=== PATIENT | female | born 1950 | race Caucasian/White ===

== ENCOUNTER 2016-10-02 16:08 | Inpatient (IN) | payer MEDICARE, OTHER ==
[2016-10-02] MEDS ORDERED: HEPARIN SODIUM,PORCINE 5,000 UNIT/ML 1 ML VIAL IV ONE (16:36)
[2016-10-02] MEDS ORDERED: HEPARIN SODIUM,PORCINE 5,000 UNIT/ML 1 ML VIAL IV PRN (16:36)
[2016-10-02] MEDS ORDERED: ASPIRIN 81 MG CHEW PO STA (16:36)
[2016-10-02] MEDS ORDERED: NITROGLYCERIN SL TABS 0.4 MG TAB SUBLINGUAL PRN (16:36)
--- NOTE | 2016-10-02 16:39 | ED ---
General Adult HPI - General Chief complaint: Chest Pain Stated complaint: Chest Pain Time Seen by Provider: 10/02/16 16:12 Source: patient, family, RN notes reviewed, old records reviewed Mode of arrival: wheelchair Limitations: no limitations - History of Present Illness Initial comments: This is a 66-year-old female here for reevaluation of chest pain. Patient's chest pain feels as a prior heart attack, relieved with nitro. Patient's significant history of anterior chest pain and significant history of coronary artery disease with CABG and stenting. Patient been having issues for quite some time. Nausea vomiting no fevers, positive for diaphoresis and shortness of breath. - Related Data Allergies Allergy/AdvReac Type Severity Reaction Status Date / Time No Known Allergies Allergy Verified 10/02/16 16:15 Review of Systems ROS Statement: Those systems with pertinent positive or pertinent negative responses have been documented in the HPI. ROS Other: All systems not noted in ROS Statement are negative. Past Medical History Past Medical History: Coronary Artery Disease (CAD), Fibromyalgia, Hypertension , Osteoarthritis (OA) Additional Past Medical History / Comment(s): chronic back pain History of Any Multi-Drug Resistant Organisms: None Reported Past Surgical History: Coronary Bypass/CABG, Heart Catheterization With Stent Past Psychological History: Anxiety, Bipolar, Depression Smoking Status: Never smoker Past Alcohol Use History: None Reported Past Drug Use History: None Reported General Exam Limitations: no limitations General appearance: alert, in no apparent distress Head exam: Present: atraumatic, normocephalic, normal inspection Eye exam: Present: normal appearance, PERRL, EOMI. Absent: scleral icterus, conjunctival injection, periorbital swelling ENT exam: Present: normal exam, mucous membranes moist Neck exam: Present: normal inspection. Absent: tenderness, meningismus, lymphadenopathy Respiratory exam: Present: normal lung sounds bilaterally. Absent: respiratory distress, wheezes, rales, rhonchi, stridor Cardiovascular Exam: Present: regular rate, normal rhythm, normal heart sounds. Absent: systolic murmur, diastolic murmur, rubs, gallop, clicks GI/Abdominal exam: Present: soft, normal bowel sounds. Absent: distended, tenderness, guarding, rebound, rigid Extremities exam: Present: normal inspection, full ROM, normal capillary refill. Absent: tenderness, pedal edema, joint swelling, calf tenderness Back exam: Present: normal inspection Neurological exam: Present: alert, oriented X3, CN II-XII intact Psychiatric exam: Present: normal affect, normal mood Skin exam: Present: warm, dry, intact, normal color. Absent: rash Course Vital Signs 10/02/16 16:12 Temperature 97.9 F Pulse Rate 69 Respiratory 18 Rate Blood Pressure 101/67 O2 Sat by Pulse 99 Oximetry EKG Findings - EKG Comments: EKG Findings:: EKG shows normal sinus rhythm at 65, FL 174, QRS 84, QTC 426 Medical Decision Making - Medical Decision Making 66 female ER for evaluation of chest pain. Chest pain relieved with nitro, patient has history of CAD, cardiac catheterizations multiple, CABG, patient scheduled for outpatient catheterization on but severe increase in chest pain and shortness of breath because her come the emergency room for further evaluation. Patient be made for anticoagulation cardiology evaluation, observation and treatment - Radiology Data Radiology results: report reviewed (Chest x-ray is negative for acute disease), image reviewed Critical Care Time Critical Care Time: Yes Total Critical Care Time: 31 Disposition Clinical Impression: Chest pain, Unstable angina pectoris Disposition: ADMITTED IP TO THIS HOSP Condition: Undetermined Referrals: Rashaad Mueller DO [Primary Care Provider] - 1-2 days
[2016-10-02] MEDS: SODIUM CHLORIDE 0.9% 1,000 ML IV SCH (16:45)
[2016-10-02 16:49] LABS: Basophils # (A) 0.1 k/uL (0-0.2); Basophils % (A) 1 %; CH 33.1; CHCM 33.8; Eosinophils # (A) 0.2 k/uL (0-0.7); Eosinophils % (A) 2 %; HCT 44.3 % (34.0-46.0); HGB 14.8 gm/dL (11.4-16.0); Luc # (Auto) 0.13; Luc % (Auto) 1; Lymphocytes # (A) 2.5 k/uL (1.0-4.8); Lymphocytes % (A) 27 %; MCH 32.8 pg (25.0-35.0); MCHC 33.4 g/dL (31.0-37.0); MCV 98.2 fL (80.0-100.0); Monocytes # (A) 0.5 k/uL (0-1.0); Monocytes % (A) 5 %; Neutrophils # (A) 5.9 k/uL (1.3-7.7); Neutrophils % (A) 64 %; RBC 4.51 m/uL (3.80-5.40); RDW 13.4 % (11.5-15.5); WBC 9.2 k/uL (3.8-10.6); WBC (Perox) 9.18
[2016-10-02] MEDS: HEPARIN SODIUM,PORCINE/D5W PMX 25,000 UNIT in DEXTROSE/WATER 1 500ML.BAG IV SCH (16:52)
[2016-10-02 16:57] LABS: Prothrombin Time 9.9 sec (9.0-12.0)
[2016-10-02 16:58] LABS: ALT 27 U/L (9-52); AST 33 U/L (14-36); Alkaline Phosphatase 141 U/L (38-126); Anion Gap 13 mmol/L; Blood Urea Nitrogen 39 mg/dL (7-17); Calcium 9.6 mg/dL (8.4-10.2); Carbon Dioxide 22 mmol/L (22-30); Chloride 104 mmol/L (98-107); Glucose 179 mg/dL (74-99); Non-African American GFR(MDRD) >60 (>60 ml/min/1.73 sqM); Phosphorous 5.5 mg/dL (2.5-4.5); Sodium 139 mmol/L (137-145); Total Bilirubin 1.1 mg/dL (0.2-1.3); Total Protein 7.8 g/dL (6.3-8.2)
[2016-10-02 16:59] LABS: Potassium 5.6 mmol/L (3.5-5.1)
--- NOTE | 2016-10-02 17:04 | XR ---
EXAMINATION TYPE: XR chest 2V DATE OF EXAM: 10/02/2016 5:00 PM COMPARISON: 04/17/2010 HISTORY: Chest pain TECHNIQUE: Frontal and lateral views of the chest are obtained. FINDINGS: Heart and mediastinum are within normal limits. Lungs are clear. There are sternal wires. Costophrenic angles are clear there are no hilar masses. There is no evidence of pleural effusion. Samir ny thorax is intact. IMPRESSION: No active cardiopulmonary disease. No change.
[2016-10-02 17:06] LABS: Partial Thromboplastin Time 20.2 sec (22.0-30.0)
[2016-10-02] MEDS ORDERED: MORPHINE SULFATE 4 MG/ML SYRINGE IVP STA (17:07)
[2016-10-02 17:08] LABS: Creatine Kinase <20 U/L (30-135)
[2016-10-02] MEDS ORDERED: ONDANSETRON 4 MG/2 ML VIAL IVP STA (17:08)
[2016-10-02 17:21] LABS: Creatine Kinase MB <0.2 ng/mL (0.0-2.4); Troponin I <0.012 ng/mL (0.000-0.034)
[2016-10-02] MEDS ORDERED: SODIUM POLYSTYRENE SULFONATE 15 GM/60 ML BOTTLE PO ONE (18:54)
[2016-10-02] MEDS ORDERED: HYDROcodone/APAP 7.5-325MG 1 EACH TAB PO PRN (18:55)
[2016-10-02] MEDS ORDERED: SENNOSIDES-DOCUSATE SODIUM 1 EACH TAB PO PRN (18:55)
[2016-10-02] MEDS ORDERED: LORATADINE 10 MG TAB PO PRN (18:55)
[2016-10-02 19:41] LABS: Appearance,Urine Clear (Clear); Bilirubin,Urine Negative (Negative); Glucose,Urine (UA) 2+ (Negative); Ketones,Urine Negative (Negative); Leukocyte Esterase,Urine Small (Negative); Mucus,Urine Occasional /hpf; Nitrite,Urine Negative (Negative); PH, Urine 5.5 (5.0-8.0); Particle Count 3108; Protein,Urine Negative (Negative); RBC,Urine 1 /hpf (0-5); Specific Gravity,Urine 1.027 (1.001-1.035); Squamous Epithelial Cell,Urine 1 /hpf (0-4); UA Billing (MACRO vs. MICRO) MICRO; Urobilinogen,Urine <2.0 mg/dL (<2.0); WBC,Urine 5 /hpf (0-5)
[2016-10-02] MEDS: lamoTRIgine 25 MG TAB PO SCH (20:17)
[2016-10-02] MEDS: METOPROLOL TARTRATE 25 MG TAB PO SCH (20:18)
[2016-10-02] MEDS ORDERED: LIDOCAINE 2% GEL 30 ML TUBE TOPICAL PRN (23:16)
[2016-10-02] MEDS: HYDROcodone/APAP 7.5-325MG 1 EACH TAB PO PRN (23:31)
[2016-10-03 00:35] LABS: Creatine Kinase <20 U/L (30-135)
[2016-10-03 00:47] LABS: Creatine Kinase MB <0.2 ng/mL (0.0-2.4); Troponin I <0.012 ng/mL (0.000-0.034)
[2016-10-03 06:08] LABS: Mean Platelet Volume 7.2
[2016-10-03 06:35] LABS: Creatine Kinase <20 U/L (30-135)
[2016-10-03] MEDS: PANTOPRAZOLE 40 MG TABLET PO SCH (06:37)
[2016-10-03 06:47] LABS: Creatine Kinase MB <0.2 ng/mL (0.0-2.4); Troponin I <0.012 ng/mL (0.000-0.034)
[2016-10-03 07:31] LABS: Anion Gap 12 mmol/L; Blood Urea Nitrogen 24 mg/dL (7-17); Calcium 8.8 mg/dL (8.4-10.2); Carbon Dioxide 23 mmol/L (22-30); Chloride 105 mmol/L (98-107); Glucose 196 mg/dL (74-99); Non-African American GFR(MDRD) >60 (>60 ml/min/1.73 sqM); Potassium 4.5 mmol/L (3.5-5.1); Sodium 140 mmol/L (137-145)
[2016-10-03 07:32] LABS: Cholesterol 220 mg/dL (<200); HDL Cholesterol 67 mg/dL (40-60); Triglycerides 138 mg/dL (<150)
[2016-10-03] MEDS: HYDROcodone/APAP 7.5-325MG 1 EACH TAB PO PRN ×3 (07:32→20:48)
[2016-10-03] MEDS: ETODOLAC 200 MG CAPSULE PO SCH (07:32)
[2016-10-03] MEDS: METOPROLOL TARTRATE 25 MG TAB PO SCH ×2 (07:32→20:48)
[2016-10-03] MEDS: DULoxetine HCL 60 MG CAPSULE.DR PO SCH (07:33)
[2016-10-03] MEDS: ASPIRIN 325 MG TAB PO SCH (07:33)
[2016-10-03] MEDS: lamoTRIgine 25 MG TAB PO SCH ×2 (07:33→20:48)
[2016-10-03] MEDS ORDERED: NON-FORMULARY DRUG (Ubidecarenone [Co Q-10] 100 MG) PO SCH (09:00)
[2016-10-03] MEDS ORDERED: ATORVASTATIN 20 MG TAB PO SCH (09:00)
[2016-10-03] MEDS ORDERED: ISOSORBIDE MONONITRATE ER 30 MG TAB.ER.24H PO SCH (09:00)
--- NOTE | 2016-10-03 09:28 | P.CRDCN ---
History of Present Illness Consult date: 10/03/16 Reason for Consult (text): Chest Pain Chief complaint: Chest heaviness History of present illness: This is a pleasant 66-year-old female patient who follows with Dr. Hilario in the office. She has a known history of hypertension, dyslipidemia, coronary artery disease, status post coronary artery bypass grafting in 2008, negative stress test in April 2016. She has been having complaints of chest heaviness going on for about 6 weeks and recently saw Dr. Hilario in the office and has been scheduled for cardiac catheterization on the of this month. Senna to the emergency room with increasing chest heaviness that radiated to her back, bilateral shoulders and to her jaw. Associated symptoms included diaphoresis, shortness of breath and nausea. She also complains of occasional palpitations. EKG on admission shows sinus rhythm with T-wave inversion in the precordial leads, possible old anterior [place], no changes of acute ischemia. Laboratory values showed troponins less than 0.0123, BUN 24 and creatinine 0.6. Chest x- ray showed no acute cardiopulmonary process. Upon examination patient is resting comfortably in bed. Complains of chest heaviness that is constant, rated about 2 out of 10 at rest. Increases significantly with exertion. Currently denies any complaints of shortness of breath, nausea, diaphoresis, syncope, near syncope or edema. Past Medical History Past Medical History: Coronary Artery Disease (CAD), Fibromyalgia, Hypertension , Myocardial Infarction (ME), Osteoarthritis (OA) Additional Past Medical History / Comment(s): chronic back pain Last Myocardial Infarction Date:: 2008 History of Any Multi-Drug Resistant Organisms: None Reported Past Surgical History: Coronary Bypass/CABG, Heart Catheterization With Stent Additional Past Surgical History / Comment(s): CABG 2009 [facility] STENT AT [facility] BEFORE CABG SURGERY- DR CUTLER Past Anesthesia/Blood Transfusion Reactions: No Reported Reaction Date of Last Stent Placement:: 2003 Past Psychological History: Anxiety, Bipolar, Depression Smoking Status: Never smoker Past Alcohol Use History: None Reported Past Drug Use History: None Reported - Past Family History Mother Family Medical History: Diabetes Mellitus Father Family Medical History: Myocardial Infarction (ME) Medications and Allergies Home Medications Medication Instructions Recorded Confirmed Type Aspirin EC [Ecotrin Low Dose] 81 mg PO DAILY 10/02/16 10/02/16 History Cetirizine HCl [Zyrtec] 10 mg PO DAILY PRN 10/02/16 10/02/16 History DULoxetine HCL [Cymbalta] 60 mg PO DAILY 10/02/16 10/02/16 History Diclofenac Sodium [Voltaren] 50 mg PO DAILY 10/02/16 10/02/16 History HYDROcodone/APAP 7.5-325MG [[place] 1 tab PO Q8H PRN 10/02/16 10/02/16 History 7.5-325] Isosorbide Mononitrate ER [Imdur] 30 mg PO DAILY 10/02/16 10/02/16 History L.acidoph,Paracasei, B.lactis 1 cap PO DAILY 10/02/16 10/02/16 History [Probiotic] Metoprolol Tartrate [Lopressor] 25 mg PO BID 10/02/16 10/02/16 History Omeprazole [PriLOSEC] 20 mg PO DAILY 10/02/16 10/02/16 History Rosuvastatin Calcium [Crestor] 10 mg PO DAILY 10/02/16 10/02/16 History Sennosides-Docusate Sodium 1 - 2 tab PO TID PRN 10/02/16 10/02/16 History [Senokot-S] Ubidecarenone [Co Q-10] 100 mg PO DAILY 10/02/16 10/02/16 History lamoTRIgine [LaMICtal] 50 mg PO BID 10/02/16 10/02/16 History predniSONE 20 mg PO DAILY PRN 10/02/16 10/02/16 History Allergies Allergy/AdvReac Type Severity Reaction Status Date / Time No Known Allergies Allergy Verified 10/02/16 17:17 Physical Exam Vitals: Vital Signs Temp Pulse Pulse Pulse Resp BP BP 10/03/16 08:00 60 60 16 10/03/16 07:49 98.5 F 60 16 136/70 10/03/16 04:00 97.1 F L 61 17 122/72 10/03/16 00:00 97.5 F L 63 18 129/73 10/02/16 19:45 97.1 F L 68 68 18 117/66 10/02/16 18:08 97.9 F 63 20 113/63 10/02/16 17:43 61 10/02/16 17:18 65 18 117/73 Pulse Ox 10/03/16 08:00 10/03/16 07:49 96 10/03/16 04:00 97 10/03/16 00:00 94 L 10/02/16 19:45 95 10/02/16 18:08 96 10/02/16 17:43 10/02/16 17:18 96 Intake and Output 10/02/16 10/03/16 10/03/16 22:59 06:59 14:59 Intake Total 640 218.429 Output Total 100 100 Balance 540 218.429 -100 Intake: Intake, IV Titration 160 218.429 Amount Heparin Sodium,Porcine/ 218.429 D5w Pmx 25,000 unit In Dextrose/Water 1 500ml. bag @ 12 UNITS/KG/HR 16. 22 mls/hr IV .Q24H JU Rx #:[id number] Sodium Chloride 0.9% 1, 160 000 ml @ 20 mls/hr IV . Q24H JU Rx#:[id number] Oral 480 Output: Urine 100 100 Other: Voiding Method Toilet Toilet # Voids 1 1 1 Weight 66.4 kg 66.4 kg Patient Weight 10/04/16 06:59 Weight 66.4 kg PHYSICAL EXAMINATION: HEENT: Head is atraumatic, normocephalic. Pupils equal, round. Neck is supple. There is no elevated jugular venous pressure. HEART EXAMINATION: Heart sounds regular, S1 and S2 normal. No murmur or gallop heard. CHEST EXAMINATION: Lungs are clear to auscultation and precussion. No chest wall tenderness is noted on palpation or with deep breathing. ABDOMEN: Soft, nontender. Bowel sounds are heard. No organomegaly noted. EXTREMITIES: 2+ peripheral pulses with no evidence of peripheral edema and no calf tenderness noted. NEUROLOGIC patient is awake, alert and oriented x3. . Results 10/03/16 05:49 10/03/16 05:49 Cardiac Enzymes 10/02/16 10/03/16 Range/Units 23:53 05:49 CK-MB (CK-2) <0.2 <0.2 (0.0-2.4) ng/mL Troponin I <0.012 <0.012 (0.000-0.034) ng/mL Coagulation 10/02/16 10/03/16 Range/Units 23:53 05:49 APTT 47.2 H 49.5 H (22.0-30.0) sec Lipids 10/03/16 Range/Units 05:49 Triglycerides 138 (<150) mg/dL Cholesterol 220 H (<200) mg/dL HDL Cholesterol 67 H (40-60) mg/dL CBC 10/03/16 Range/Units 05:49 Plt Count 213 (150-450) k/uL Comprehensive Metabolic Panel 10/03/16 Range/Units 05:49 Sodium 140 (137-145) mmol/L Potassium 4.5 (3.5-5.1) mmol/L Chloride 105 (98-107) mmol/L Carbon Dioxide 23 (22-30) mmol/L BUN 24 H (7-17) mg/dL Creatinine 0.60 (0.52-1.04) mg/dL Glucose 196 H (74-99) mg/dL Calcium 8.8 (8.4-10.2) mg/dL Current Medications Generic Name Dose Route Start Last Admin Trade Name Freq PRN Reason Stop Dose Admin Hydrocodone Bitart/Acetaminophen 1 each 10/02/16 23:17 10/03/16 07:32 [place] 7.5-325 PO 1 each Q4H PRN Administration Moderate Pain Aspirin 325 mg 10/03/16 09:00 10/03/16 07:33 Aspirin PO 325 mg DAILY JU Administration Atorvastatin Calcium 20 mg 10/03/16 09:00 10/03/16 07:32 Lipitor PO 20 mg DAILY JU Administration Duloxetine HCl 60 mg 10/03/16 09:00 10/03/16 07:33 Cymbalta PO 60 mg DAILY JU Administration Etodolac 200 mg 10/03/16 09:00 10/03/16 07:32 [place] PO 200 mg DAILY JU Administration Heparin Sodium (Porcine) 0 unit 10/02/16 16:36 Heparin IV Q6HR PRN Low PTT Protocol Heparin Sodium/Dextrose 25,000 500 mls @ 16.22 mls/hr 10/02/16 16:45 06:20 unit/ IV Solution IV 12 units/kg/hr .Q24H JU 16.22 mls/hr Protocol Titration 12 UNITS/KG/HR Sodium Chloride 1,000 mls @ 20 mls/hr 10/02/16 16:45 10/02/16 16:45 Saline 0.9% IV 20 mls/hr .Q24H JU Administration Isosorbide Mononitrate 30 mg 10/03/16 09:00 10/03/16 07:33 Imdur PO 30 mg DAILY JU Administration Lactobacillus Acidoph/[place] 1 each 10/03/16 12:00 Lactinex PO DAILY@1200 JU Lamotrigine 50 mg 10/02/16 21:00 10/03/16 07:33 Lamictal PO 50 mg BID JU Administration Lidocaine HCl 1 applic 10/02/16 23:16 Xylocaine Jelly 2% TOPICAL BID PRN Pain Loratadine 10 mg 10/02/16 18:55 Claritin PO DAILY PRN Allergy Symptoms Metoprolol Tartrate 25 mg 10/02/16 21:00 10/03/16 07:32 Lopressor PO 25 mg BID [facility] Administration Nitroglycerin 0.4 mg 10/02/16 16:36 10/02/16 19:45 Nitrostat SUBLINGUAL 0.4 mg Q5M PRN Administration Chest Pain Pantoprazole Sodium 40 mg 10/03/16 07:30 10/03/16 06:37 Protonix PO 40 mg [id number] [facility] Administration Senna/Docusate Sodium 1 each 10/02/16 18:55 Senokot-S PO TID PRN Constipation Intake and Output 10/02/16 10/03/16 10/03/16 22:59 06:59 14:59 Intake Total 640 218.429 Output Total 100 100 Balance 540 218.429 -100 Intake: Intake, IV Titration 160 218.429 Amount Heparin Sodium,Porcine/ 218.429 D5w Pmx 25,000 unit In Dextrose/Water 1 500ml. bag @ 12 UNITS/KG/HR 16. 22 mls/hr IV .Q24H [facility] Rx #:[id number] Sodium Chloride 0.9% 1, 160 000 ml @ 20 mls/hr IV . Q24H [facility] Rx#:[id number] Oral 480 Output: Urine 100 100 Other: Voiding Method Toilet Toilet # Voids 1 1 1 Weight 66.4 kg 66.4 kg Patient Weight 10/04/16 06:59 Weight 66.4 kg 10/03/16 05:49 10/03/16 05:49 Assessment and Plan Plan: Assessment and plan #1 chest pain suggestive of angina, troponins negative 3 #2 multivessel CAD with history of CABG in 2008 #3 hypertension #4 dyslipidemia #5 fibromyalgia From cardiology perspective, we will obtain a 2-D echo. We will increase the patient's statin. Increase Imdur to 60mg daily. Plan for cardiac catheterization to be done Wednesday. MANAGER BUSINESS INFORMATION note has been reviewed, I agree with a documented findings and plan of care. Patient was seen and examined.
[2016-10-03] MEDS ORDERED: ISOSORBIDE MONONITRATE ER 30 MG TAB.ER.24H PO ONE (11:00)
[2016-10-03] MEDS ORDERED: ATORVASTATIN 20 MG TAB PO ONE (11:00)
[2016-10-03] MEDS: LACTOBACILLUS ACIDOPH & BULGAR 1 EACH PACKET PO SCH (11:38)
[2016-10-03] MEDS: HEPARIN SODIUM,PORCINE/D5W PMX 25,000 UNIT in DEXTROSE/WATER 1 500ML.BAG IV SCH (14:48)
[2016-10-03] MEDS: SODIUM CHLORIDE 0.9% 1,000 ML IV SCH (14:49)
--- NOTE | 2016-10-03 15:38 | ECHOF ---
Referral Reason:chest pain MEASUREMENTS -------- HEIGHT: 154.9 cm WEIGHT: 66.2 kg BP: 136/70 IVSd: 1.1 cm (0.6 - 1.1) LVIDd: 4.2 cm (3.9 - 5.3) LVPWd: 1.1 cm (0.6 - 1.1) LVIDs: 2.8 cm LA Diam: 3.4 cm (2.7 - 3.8) RVIDd: 2.7 cm (< 3.3) LAESV Index (A-L): 13.73 ml/m Ao Diam: 3.1 cm (2.0 - 3.7) AV Cusp: 1.9 cm (1.5 - 2.6) EPSS: 0.8 cm MV E Edward: 0.65 m/s MV DecT: 289 ms MV A Edward: 0.72 m/s MV E/A Ratio: 0.91 RAP: 5.00 mmHg RVSP: 17.13 mmHg MV EF SLOPE: 53.76 mm/s (70 - 150) MV EXCURSION: 17.01 mm (> 18.000) FINDINGS -------- Sinus rhythm. This was a technically good study. The left ventricular size is normal. There is borderline concentric left ventricular hypertrophy. Overall left ventricular systolic function is normal with, an EF between 55 - 60 %. The right ventricle is normal in size. Normal LA size by volume 22+/-6 ml/m2. The right atrium is normal in size. There is mild aortic valve sclerosis. There is trace mitral regurgitation. Trace tricuspid regurgitation present. Right ventricular systolic pressure is normal at < 35 mmHg. Trace/mild (physiologic) pulmonic regurgitation. The aortic root size is normal. Normal inferior vena cava with normal inspiratory collapse consistent with estimated right atrial pressure of 5 mmHg. There is no pericardial effusion. CONCLUSIONS -------- 1. Sinus rhythm. 2. Trace tricuspid regurgitation present. 3. Right ventricular systolic pressure is normal at < 35 mmHg. 4. Trace/mild (physiologic) pulmonic regurgitation. 5. The aortic root size is normal. 6. Normal inferior vena cava with normal inspiratory collapse consistent with estimated right atrial pressure of 5 mmHg. 7. There is no pericardial effusion. 8. This was a technically good study. 9. The left ventricular size is normal. 10. There is borderline concentric left ventricular hypertrophy. 11. Overall left ventricular systolic function is normal with, an EF between 55 - 60 %. 12. The right ventricle is normal in size. 13. Normal LA size by volume 22+/-6 ml/m2. 14. There is mild aortic valve sclerosis. 15. There is trace mitral regurgitation. FIELD ASSESSOR: Kary Rene RDCS
--- NOTE | 2016-10-03 18:34 | HP ---
DATE OF ADMISSION: 10/02/2016 Chief complaint of chest pain. HISTORY OF PRESENT ILLNESS: Mrs. Whatley is a 66-year-old female with known history of hypertension, hyperlipidemia, coronary artery disease, status post coronary artery bypass graft in 2008, who follows up with Dr. Hilario as an outpatient, came to the hospital with complaints of chest pain and exertional shortness of breath, which has been getting worse over the past 6 weeks. Patient has an appointment with Dr. Hilario next but patient had this chest pain yesterday. Based on heavy feeling in the chest radiating to the back and both sides of the neck associated with nausea. No vomiting. Patient does have some diaphoresis. The patient felt like severe chest pain when she had CO . She came to the hospital for further evaluation. EKG showed sinus rhythm with T-wave inversions in the precordial leads. Patient had EKG revealed normal sinus rhythm. Chest x-ray in the ER that showed no acute cardiopulmonary process. Patient denied any recent illness. No fever, chills. No flu symptoms. No upper respiratory infection. Patient has been staying in [place] for the Summer with her daughter. She came back to [place] to follow with Dr. Hilario. REVIEW OF SYSTEMS: CONSTITUTIONAL: No fever. No chills. No weakness, malaise. RESPIRATORY: No cough or sputum production. CARDIOVASCULAR: No chest pain or shortness of breath. ABDOMEN: No nausea, vomiting, or abdominal pain. GENITOURINARY: Negative. ENDOCRINE: Negative. PSYCHIATRY: Negative. SKIN: Negative. MUSCULOSKELETAL: Negative. All other fourteen-point review of systems negative except as above. PAST MEDICAL HISTORY: Coronary artery disease and bypass graft, fibromyalgia, hypertension, history of CO, osteoarthritis, chronic back pain. PAST SURGICAL HISTORY: Coronary artery bypass grafting in 2008. Cardiac catheterization and stent placement. Stent placement at [facility] before coronary artery bypass graft surgery. Psychosocial history: Anxiety, bipolar depression. SOCIAL HISTORY: Patient never a smoker. Denied alcohol use. Denied drugs or IVDU. FAMILY HISTORY: Mother has diabetes mellitus and father has CO. Home medications: 1. Aspirin. 2. ( ). 3. Cymbalta. 4. Ultram. 5. [place] 7.5. 6. Imdur. 7. Lactobacillus. 8. Metoprolol. 9. Omeprazole. 10. Rosuvastatin. 11. Senokot. 12. Coenzyme-Q. 13. Lamictal. 14. Prednisone PHYSICAL EXAMINATION: A 65 -year-old female lying in bed comfortably. Awake, alert, oriented, x3 appears to be in no apparent distress. VITALS: Blood pressure is 136/70, pulse is 60, respirations 18, temperature afebrile, pulse ox 96% on room air. HEENT: Atraumatic, normocephalic. Neck is supple. No JVD. CVS: S1, S2 heard. No murmurs, no gallop, no rub. LUNGS: Bilateral air entry is present. No wheezing. No crackles. Nonlabored breathing. ABDOMEN: Soft, nontender. Bowel sounds are present. SPA EXPERIENCE COORDINATOR: Awake, alert, oriented, x3. No focal deficits. EXTREMITIES: No edema. Pulses palpable bilaterally. No clubbing or cyanosis. PSYCHIATRIC: Cooperative. LABORATORY DATA: WBC 9.2, hemoglobin 14.8, platelets 278. Sodium 139, potassium 5.6, chloride 104, bicarb, BUN 39, creatinine 0.72, phosphorus 5.5. Troponin x3 negative and LDL is 125. The patient has INR 1.0. Chest x-ray: No acute cardiac process. EKG: Normal sinus rhythm with T-wave inversions in the precordial leads from previous CO. IMPRESSION: 1. Chest pain in a known patient with coronary artery disease and coronary artery bypass graft, we will rule out acute coronary syndrome. 2. History of coronary artery disease, status post coronary artery bypass graft at [facility] in 2008. 3. Hyperlipidemia. 4. Hypertension. 5. Hyperkalemia. 6. History of fibromyalgia. 7. Patient is on prednisone 20 mg p.r.n. for allergies only. 8. Chronic back pain. 9. Osteoarthritis. DISCUSSION AND PLAN: Patient will be continued on telemetry monitoring. Serial EKGs and troponins. Continue with the heparin IV now. Cardiology planned for cardiac catheterization on Wednesday. We will continue the home medications. Further recommendations based on clinical course.
[2016-10-04 06:25] LABS: Mean Platelet Volume 8.8
[2016-10-04] MEDS: PANTOPRAZOLE 40 MG TABLET PO SCH (06:45)
[2016-10-04] MEDS: HYDROcodone/APAP 7.5-325MG 1 EACH TAB PO PRN ×3 (06:47→19:53)
[2016-10-04 07:21] LABS: Anion Gap 10 mmol/L; Blood Urea Nitrogen 27 mg/dL (7-17); Carbon Dioxide 22 mmol/L (22-30); Chloride 109 mmol/L (98-107); Glucose 106 mg/dL (74-99); Non-African American GFR(MDRD) >60 (>60 ml/min/1.73 sqM); Potassium 4.6 mmol/L (3.5-5.1); Sodium 141 mmol/L (137-145)
[2016-10-04] MEDS: lamoTRIgine 25 MG TAB PO SCH ×2 (07:45→19:53)
[2016-10-04] MEDS: DULoxetine HCL 60 MG CAPSULE.DR PO SCH (07:45)
[2016-10-04] MEDS: ISOSORBIDE MONONITRATE ER 60 MG TAB.ER.24H PO SCH (07:45)
[2016-10-04] MEDS: METOPROLOL TARTRATE 25 MG TAB PO SCH ×2 (07:45→19:53)
[2016-10-04] MEDS: ETODOLAC 200 MG CAPSULE PO SCH (07:45)
[2016-10-04] MEDS: ASPIRIN 325 MG TAB PO SCH (07:45)
[2016-10-04] MEDS: ATORVASTATIN 40 MG TAB PO SCH (07:46)
[2016-10-04] MEDS: LACTOBACILLUS ACIDOPH & BULGAR 1 EACH PACKET PO SCH (11:38)
[2016-10-04] MEDS ORDERED: ALPRAZolam 0.5 MG TAB PO PRN (13:36)
[2016-10-04] MEDS ORDERED: SODIUM CHLORIDE 0.9% 1,000 ML in EMPTY BAG 1 BAG IV ONE (13:36)
[2016-10-04] MEDS ORDERED: ASPIRIN 325 MG TAB PO STA (13:36)
[2016-10-04] MEDS ORDERED: NITROGLYCERIN SL TABS 0.4 MG TAB SUBLINGUAL PRN (13:36)
[2016-10-04] MEDS ORDERED: ALPRAZolam 0.25 MG TAB PO PRN (13:36)
[2016-10-04] MEDS ORDERED: ATORVASTATIN 80 MG TAB PO STA (13:36)
--- NOTE | 2016-10-04 15:08 | P.PN ---
Subjective Principal diagnosis: Chest pain This is a pleasant 66-year-old female patient who follows with Dr. Hilario in the office. She has a known history of hypertension, dyslipidemia, coronary artery disease, status post coronary artery bypass grafting in 2008, negative stress test in April 2016. She has been having complaints of chest heaviness going on for about 6 weeks and recently saw Dr. Hilario in the office and has been scheduled for cardiac catheterization on the of this month. Senna to the emergency room with increasing chest heaviness that radiated to her back, bilateral shoulders and to her jaw. Associated symptoms included diaphoresis, shortness of breath and nausea. She also complains of occasional palpitations. EKG on admission shows sinus rhythm with T-wave inversion in the precordial leads, possible old anterior [place], no changes of acute Ischemia. Laboratory values showed troponins less than 0.0123. She did have one episode of chest discomfort this morning as well relieved with sublingual nitroglycerin. Pain- free at the time of my examination. Objective - Vital Signs Vital signs: Vital Signs Temp 97.8 F 10/04/16 12:00 Pulse 58 L 10/04/16 12:00 Resp 16 10/04/16 12:00 BP 107/62 10/04/16 12:00 Pulse Ox 95 10/04/16 12:00 Intake & Output 10/03/16 10/04/16 10/04/16 18:59 06:59 18:59 Intake Total 457.329 727.628 450 Output Total 300 200 Balance 157.329 727.628 250 Weight 66.4 kg 67 kg 67 kg Intake: Intake, IV Titration 257.329 577.628 210 Amount Heparin Sodium,Porcine/ 137.329 257.628 90 D5w Pmx 25,000 unit In Dextrose/Water 1 500ml. bag @ 12 UNITS/KG/HR 16. 22 mls/hr IV .Q24H JU Rx #:[id number] Sodium Chloride 0.9% 1, 120 320 000 ml @ 20 mls/hr IV . Q24H JU Rx#:[id number] Sodium Chloride 0.9% 1, 120 000 ml In Empty Bag 1 bag @ 1 ML/KG/HR 67 mls/hr IV .[id number] Rx#: [id number] Oral 200 150 240 Output: Urine 300 200 Other: Voiding Method Toilet Toilet Toilet # Voids 2 1 - Exam PHYSICAL EXAMINATION: HEENT: [Head is atraumatic, normocephalic. Pupils equal, round. Neck is supple. There is no elevated jugular venous pressure.] HEART EXAMINATION: [Heart S1, S2 normal. No murmur or gallop heard.] CHEST EXAMINATION:[ Lungs are clear to auscultation and precussion. No chest wall tenderness is noted on palpation or with deep breathing.] ABDOMEN: [ Soft, nontender. Bowel sounds are heard. No organomegaly noted]. EXTREMITIES:[ 2+ peripheral pulses with no evidence of peripheral edema and no calf tenderness noted]. NEUROLOGIC [patient is awake, alert and oriented -3.] . - Labs CBC & Chem 7: 10/04/16 06:00 10/04/16 06:00 Labs: Abnormal Lab Results - Last 24 Hours (Table) 10/04/16 10/04/16 10/04/16 Range/Units 06:00 06:00 13:17 APTT 45.2 H 53.7 H (22.0-30.0) sec Chloride 109 H (98-107) mmol/L BUN 27 H (7-17) mg/dL Glucose 106 H (74-99) mg/dL Microbiology - Last 24 Hours (Table) 10/02/16 19:30 Urine Culture - Final Urine,Voided Assessment and Plan Plan: Assessment and Plan Plan: Assessment and plan #1 chest pain suggestive of angina, troponins negative 3 #2 multivessel CAD with history of CABG in 2008 #3 hypertension #4 dyslipidemia #5 fibromyalgia Plan Patient is scheduled to undergo cardiac catheterization tomorrow with Dr. Hilario. The risks and the benefits have been explained to her in detail. Recommendations will be based on these findings and the patient's clinical course. \ DNP note has been reviewed, I agree with a documented findings and plan of care. Patient was seen and examined.
[2016-10-04] MEDS: HEPARIN SODIUM,PORCINE/D5W PMX 25,000 UNIT in DEXTROSE/WATER 1 500ML.BAG IV SCH (15:48)
[2016-10-04] MEDS: SODIUM CHLORIDE 0.9% 1,000 ML IV SCH (15:49)
[2016-10-05 06:27] LABS: Basophils % (A) 1 %; CH 32.8; CHCM 33.1; Eosinophils # (A) 0.1 k/uL (0-0.7); Eosinophils % (A) 2 %; HCT 38.8 % (34.0-46.0); HDW 2.43; HGB 12.6 gm/dL (11.4-16.0); Luc # (Auto) 0.15; Luc % (Auto) 3; Lymphocytes # (A) 2.8 k/uL (1.0-4.8); Lymphocytes % (A) 47 %; MCH 32.4 pg (25.0-35.0); MCHC 32.6 g/dL (31.0-37.0); MCV 99.6 fL (80.0-100.0); Mean Platelet Volume 7.1; Monocytes # (A) 0.3 k/uL (0-1.0); Monocytes % (A) 6 %; Neutrophils # (A) 2.5 k/uL (1.3-7.7); Neutrophils % (A) 42 %; RDW 13.4 % (11.5-15.5); WBC 5.9 k/uL (3.8-10.6); WBC (Perox) 6.23
[2016-10-05] MEDS: METOPROLOL TARTRATE 25 MG TAB PO SCH ×2 (06:54→19:58)
[2016-10-05] MEDS: ATORVASTATIN 40 MG TAB PO SCH (06:54)
[2016-10-05] MEDS: ASPIRIN 325 MG TAB PO SCH (06:54)
[2016-10-05 06:55] LABS: Anion Gap 4 mmol/L; Blood Urea Nitrogen 18 mg/dL (7-17); Calcium 9.1 mg/dL (8.4-10.2); Carbon Dioxide 25 mmol/L (22-30); Chloride 108 mmol/L (98-107); Glucose 124 mg/dL (74-99); Non-African American GFR(MDRD) >60 (>60 ml/min/1.73 sqM); Potassium 4.1 mmol/L (3.5-5.1); Sodium 137 mmol/L (137-145)
[2016-10-05] MEDS: PANTOPRAZOLE 40 MG TABLET PO SCH (06:55)
[2016-10-05] MEDS: ISOSORBIDE MONONITRATE ER 60 MG TAB.ER.24H PO SCH (06:55)
[2016-10-05] MEDS ORDERED: MIDAZOLAM 2 MG/2 ML VIAL ONE (07:40)
[2016-10-05] MEDS ORDERED: MIDAZOLAM 2 MG/2 ML VIAL IVP ONE (07:47)
[2016-10-05] MEDS ORDERED: SODIUM CHLORIDE 0.9% 1,000 ML IV ONE (07:47)
[2016-10-05] MEDS ORDERED: LIDOCAINE 2% INJ 20 MG/ML SQ ONE ×2 (07:51→07:52)
[2016-10-05] MEDS ORDERED: BIVALIRUDIN BOLUS 250 MG/50 ML IV ONE (08:36)
[2016-10-05] MEDS ORDERED: BIVALIRUDIN 250 MG in SODIUM CHLORIDE 0.9% 50 ML IV ONE (08:37)
[2016-10-05] MEDS ORDERED: CLOPIDOGREL 75 MG TAB ONE (08:37)
[2016-10-05] MEDS ORDERED: CLOPIDOGREL 75 MG TAB PO ONE (08:41)
[2016-10-05] MEDS ORDERED: NITROGLYCERIN 1000MCG/10ML SYRINGE INTRACORON ONE (08:41)
[2016-10-05] MEDS ORDERED: IOHEXOL 350 MG/ML 100 ML BOTTLE INJ ONE (09:02)
[2016-10-05] MEDS ORDERED: ATROPINE SULFATE 0.1 MG/ML 10ML SYRINGE IV PRN (09:04)
[2016-10-05] MEDS ORDERED: MAG HYDROX/AL HYDROX/SIMETH 30 ML CUP PO PRN (09:04)
[2016-10-05] MEDS ORDERED: RX INFO: IV CONTRAST WAS GIVEN 1 EACH MISC MISCELLANE PRN (09:04)
[2016-10-05] MEDS ORDERED: NITROGLYCERIN SL TABS 0.4 MG TAB SUBLINGUAL PRN (09:04)
[2016-10-05] MEDS ORDERED: ZOLPIDEM 5 MG TAB PO PRN (09:04)
[2016-10-05] MEDS ORDERED: SODIUM CHLORIDE 0.9% 1,000 ML IV SCH (09:15)
[2016-10-05] MEDS ORDERED: ATORVASTATIN 40 MG TAB PO ONE (09:15)
[2016-10-05] MEDS: HYDROcodone/APAP 7.5-325MG 1 EACH TAB PO PRN ×3 (09:35→21:47)
[2016-10-05] MEDS: DULoxetine HCL 60 MG CAPSULE.DR PO SCH (09:36)
[2016-10-05] MEDS: lamoTRIgine 25 MG TAB PO SCH ×2 (09:36→19:58)
[2016-10-05] MEDS: ETODOLAC 200 MG CAPSULE PO SCH (09:37)
--- NOTE | 2016-10-05 14:13 | PN ---
DATE OF SERVICE: 10/04/2016 INTERVAL HISTORY: Ms. Whatley is a 66 -year-old female with known history of hypertension, hyperlipidemia, coronary artery disease, status post coronary artery bypass grafting in [address] Hilario. Came to the hospital with complaints of chest pain, exertional shortness of breath, which has been getting worse for the past 6 weeks. The patient has troponin level times three is negative. Currently patient on heparin drip for unstable angina still having chest pain today, and heavy feeling in the chest. Denies any nausea or vomiting, tolerating p.o. diet and the patient is scheduled for cardiac catheterization tomorrow. No fever. No chills. No acute overnight issues. REVIEW OF SYSTEMS: CONSTITUTIONAL: No fever, no chills. RESPIRATORY: No cough or sputum production. CARDIOVASCULAR: Patient does have chest pain. No nausea or vomiting. No leg swelling. No palpitations. ABDOMEN: No nausea, vomiting or abdominal pain. GENITOURINARY: Negative. ENDOCRINE: Negative. PSYCHIATRIC: Negative. SKIN: Negative. All other 14 point review of systems negative except as above. Current medications include: 1. [place] 7.5. 2. Xanax. 3. Aspirin. 4. Lipitor. 5. Cymbalta. 6. Etodolac. 7. Heparin IV. 8. Imdur. 9. Lactobacillus. 10. Lamictal. 11. Loratadine. 12. Metoprolol. 13. Nitrostat. 14. Protonix. 15. Senna. PHYSICAL EXAMINATION: A 66-year-old female lying in bed comfortably. Awake, alert, oriented, x3 appears to be in no apparent distress. VITALS: Blood pressure is 104/60, pulse is 66, respiration 16, temperature afebrile, pulse ox 97% percent on room air. HEENT: Atraumatic, normocephalic. Neck is supple. No JVD. CVS: S1, S2 heard. No murmurs, no gallop, no rub. LUNGS: Bilateral air entry is present. No wheezing, no crackles, nonlabored breathing. ABDOMEN: Soft, nontender. Bowel sounds present. STRICKLER ATTENDANT: Awake, alert and oriented times three. No focal deficits. EXTREMITIES: No edema. Pulses are palpable bilaterally. No clubbing or cyanosis. PSYCHIATRIC: Cooperative. LABORATORY DATA: Sodium 141, potassium 4.6, chloride 109, bicarb 22. BUN 27, creatinine 0.7, calcium 9.0, LDL 125. IMPRESSION: 1. Unstable angina with known history of coronary artery disease and bypass graft. 2. History of coronary artery disease status post bypass grafting in 2008 at [facility]. 3. Hyperlipidemia. 4. Hypertension. 5. Hyperkalemia on admission, improved now. 6. History of fibromyalgia. 7. Chronic back. 8. Degenerative joint disease. The patient is on prednisone for allergies only p.r.n. at home. DISCUSSION AND PLAN: The patient will be continued on heparin drip at this time. Continue the current management. Cardiology planning for cardiac catheterization tomorrow. Further recommendations based on clinical course.
--- NOTE | 2016-10-05 14:29 | P.PN ---
Subjective Principal diagnosis: Chest pain Patient is a 66-year-old female, patient of Dr. Rashaad Mueller in the outpatient setting, with medical history significant for hypertension, hyperlipidemia, coronary artery disease, status post coronary artery bypass grafting in 2008. Admitted to the hospital with complaints of chest pain and exertional shortness of breath ongoing for the last 6 weeks. Patient is status post cardiac catheterization with stent placement. Patient is evaluated at bedside. Patient states the chest pressure is gone. Denies chills, nausea, vomiting, shortness of breath, or abdominal pain. Reports good appetite. Patient states her last bowel movement was 2 days ago. Objective - Vital Signs Vital signs: Vital Signs Temp 96.9 F L 10/05/16 09:20 Pulse 60 10/05/16 09:20 Resp 16 10/05/16 09:20 BP 126/65 10/05/16 09:20 Pulse Ox 96 10/05/16 09:20 Intake & Output 10/04/16 10/05/16 10/05/16 18:59 06:59 18:59 Intake Total 858.487 737 275 Output Total 300 Balance 558.487 737 275 Weight 67 kg 67.3 kg Intake: IV 275 Intake, IV Titration 382.487 737 Amount Heparin Sodium,Porcine/ 262.487 D5w Pmx 25,000 unit In Dextrose/Water 1 500ml. bag @ 12 UNITS/KG/HR 16. 22 mls/hr IV .Q24H [facility] Rx #:[id number] Sodium Chloride 0.9% 1, 120 737 000 ml In Empty Bag 1 bag @ 1 ML/KG/HR 67 mls/hr IV .[id number] Rx#: [id number] Oral 476 Output: Urine 300 Other: Voiding Method Toilet # Voids 1 1 - Exam GENERAL: Pt awake and alert, well-appearing, well-nourished, and in no acute distress. HEAD: Atraumatic, normocephalic. EYES: Pupils equal, round, and reactive to light, sclera anicteric, conjunctiva are normal. ENT: Moist mucous membranes. NECK:Normal range of motion, supple without lymphadenopathy or JVD. LUNGS: Breath sounds clear to auscultation bilaterally. No wheezes, rales, or rhonchi. HEART: Heart S1, S2, no S3 or S4. Regular rate and rhythm. No murmurs, rubs or gallops. ABDOMEN: Soft, nontender, nondistended, normoactive bowel sounds. No guarding, no rebound. No masses or organomegaly appreciated. EXTREMITIES: Palpable peripheral pulses. No edema, clubbing or cyanosis. No calf tenderness. NEUROLOGICAL: Pt oriented x 3. No focal deficits. Strength and sensation grossly intact. PSYCH: Normal mood, normal affect. SKIN: Warm, dry. Normal turgor. No rashes or lesions. - Labs CBC & Chem 7: 10/05/16 05:57 10/05/16 05:57 Labs: Abnormal Lab Results - Last 24 Hours (Table) 10/05/16 10/05/16 Range/Units 05:57 05:57 APTT 53.8 H (22.0-30.0) sec Chloride 108 H (98-107) mmol/L BUN 18 H (7-17) mg/dL Glucose 124 H (74-99) mg/dL Assessment and Plan Plan: Impression: 1. Unstable angina status post cardiac catheterization with stent placement on 10/05/2016. 2. History of coronary artery disease status post bypass grafting in 2008 at [facility]. 3. Dyslipidemia. 4. Hypertension. 5. Fibromyalgia. 6. Chronic back pain. 7. Degenerative joint disease. Plan: Continue to monitor patient. Continue current medications. Continue follow cardiology service. Repeat CBC and BMP in a.m. The above impression and plan have been discussed and directed by Dr. Mueller. Eliazar RATLIFF acting as scribe for Dr. Mueller.
[2016-10-05] MEDS: LACTOBACILLUS ACIDOPH & BULGAR 1 EACH PACKET PO SCH (15:06)
[2016-10-05 15:44] VITALS: RESP 16
[2016-10-05] MEDS: SODIUM CHLORIDE 0.9% 1,000 ML IV SCH (15:53)
--- NOTE | 2016-10-05 19:47 | PTCA ---
DATE OF SERVICE: Ms. Whatley is a 66-year-old female with a history of coronary artery disease, status post coronary artery bypass grafting in 2008 who presented with angina pectoris, underwent cardiac catheterization by Dr. Hilario and was found to have significant stenosis in the distal anastomotic site of the saphenous vein graft to the right coronary artery as well as significant obstructive disease in the right PDA beyond the stented segment. In view of that, recommendation was made regarding angioplasty and stenting. The procedure as well as risks and complications were discussed with the patient, who was in full understanding and agreement. PROCEDURE: A 6 [place] right coronary artery bypass graft catheter was introduced. After cannulating the ostium of the graft, a 0.014 balanced medium weight J-wire was advanced across the lesion, positioned distally, then a 2.25 x 12 mm Xience Alpine stent was deployed, post dilated at 14 atmospheres. Following that, the balloon was removed and a 3.0 x 15 mm Xience Alpine stent was deployed in the distal anastomotic site and post dilated at 16 atmospheres. After the last inflation, after appropriate wait, the balloon and the guidewire were withdrawn back into the guiding catheter. Images were obtained and repeated. Those images reveal stable successful stenting. At that point, the guiding catheter, the balloon and the guidewire were removed. The sheath was removed. Hemostasis was obtained with deployment of an Angio-Seal. There was no immediate complication. Patient was returned to her room in stable condition. Of note, the patient received Angiomax per protocol as well as oral loading dose of clopidogrel. She had chest discomfort with the inflations that resolved at the end of the procedure. Duration of procedure: 25 minutes. FINDINGS: 1. Successful stenting of the right PDA distal to the anastomotic site with reduction in stenosis from 80% to 0%. 2. Successful stenting of the distal anastomotic site of the saphenous vein graft to right coronary artery with reduction in stenosis from 80% to 0%. RECOMMENDATION: Patient will be continued on aspirin, Plavix, beta judi, BIENEVNIDO inhibitor and statin. The importance of dual antiplatelet treatment was discussed with the patient, who is in full understanding and agreement.
--- NOTE | 2016-10-05 19:49 | LTR ---
October 05, 2016 RE: PhyliciaKandice Dear Dr. Mueller, I had the pleasure of performing coronary angioplasty and stenting on Mrs. Whatley at [facility] on October 05, 2016. A full copy of the procedure note will be forwarded to you. In brief, she underwent successful stenting of the distal anastomotic site of the saphenous vein graft to the right coronary artery as well as her [place] right PDA using a drug-eluting stent. I am hopeful that this procedure will stabilize her status. Thank you again for allowing me to participate in her care. Please feel free to call with any questions. Sincerely, JULIA CUTLER MD
[2016-10-05] MEDS: LISINOPRIL 5 MG TAB PO SCH (19:58)
[2016-10-06] MEDS: PANTOPRAZOLE 40 MG TABLET PO SCH (06:38)
[2016-10-06 06:39] LABS: Anion Gap 8 mmol/L; Blood Urea Nitrogen 19 mg/dL (7-17); Calcium 9.5 mg/dL (8.4-10.2); Carbon Dioxide 27 mmol/L (22-30); Chloride 108 mmol/L (98-107); Glucose 123 mg/dL (74-99); Non-African American GFR(MDRD) >60 (>60 ml/min/1.73 sqM); Potassium 4.7 mmol/L (3.5-5.1); Sodium 143 mmol/L (137-145)
[2016-10-06 07:55] VITALS: PULSE 68
[2016-10-06] MEDS ORDERED: CLOPIDOGREL 75 MG TAB PO SCH (09:00)
[2016-10-06] MEDS ORDERED: ATORVASTATIN 80 MG TAB PO SCH (09:00)
[2016-10-06] MEDS ORDERED: ASPIRIN 81 MG CHEW PO SCH (09:00)
[2016-10-06] MEDS: ETODOLAC 200 MG CAPSULE PO SCH (09:44)
[2016-10-06] MEDS: DULoxetine HCL 60 MG CAPSULE.DR PO SCH (09:44)
[2016-10-06] MEDS: LISINOPRIL 5 MG TAB PO SCH (09:45)
[2016-10-06] MEDS: ISOSORBIDE MONONITRATE ER 60 MG TAB.ER.24H PO SCH (09:45)
[2016-10-06] MEDS: lamoTRIgine 25 MG TAB PO SCH (09:45)
[2016-10-06] MEDS: METOPROLOL TARTRATE 25 MG TAB PO SCH (09:46)
[2016-10-06] MEDS: LACTOBACILLUS ACIDOPH & BULGAR 1 EACH PACKET PO SCH (11:10)
[2016-10-06] MEDS: HYDROcodone/APAP 7.5-325MG 1 EACH TAB PO PRN (11:11)
[2016-10-06 11:49] VITALS: BP 136/67; TEMP 97.5
--- NOTE | 2016-10-06 12:14 | P.DS ---
Providers Date of admission: 10/02/16 16:36 Expected date of discharge: 10/06/16 Attending physician: Rashaad Mueller Consults: 10/05/16 09:04 Consult Physician Routine Consulting Provider: [facility] Consult Reason/Comments: Post Interventional patient Do you want consulting provider notified?: Already Contacted Primary care physician: Rashaad Mueller [facility] Course: Patient is a 66-year-old female, patient of Dr. Rashaad Mueller in the outpatient setting, with medical history significant for hypertension, hyperlipidemia, coronary artery disease, status post coronary artery bypass grafting in 2008. Admitted to the hospital with complaints of chest pain and exertional shortness of breath ongoing for the last 6 weeks. Patient underwent cardiac catheterization by Dr. Hilario and was found to have significant stenosis in the distal anastomic site of the saphenous vein graft to the right coronary artery as well as significant obstructive disease in the right PDA beyond the stented segment. Patient underwent successful stenting of the right PDA distal to the anastomotic site with reduction in stenosis from 80% to 0%. Patient also underwent successful stenting of the distal anastomotic site of the saphenous vein graft to the right coronary artery with reduction in stenosis from 80% to 0%. Patient tolerated procedure well. Patient was kept overnight in the hospital for monitoring with no further problems and was felt stable for discharge to home from a cardiology and medical standpoint. Discharge diagnoses: 1. Angina pectoris status post cardiac catheterization with stent placement 2 on 10/05/2016. 2. History of coronary artery disease status post bypass grafting in 2008 at [facility]. 3. Dyslipidemia. 4. Hypertension. 5. Fibromyalgia. 6. Chronic back pain. 7. Degenerative joint disease. The above impression and plan have been discussed and directed by Dr. Mueller. Eliazar RATLIFF acting as scribe for Dr. Mueller. Pertinent Studies: EKG; chest x-ray; echocardiogram with Doppler Procedures: Heart catheterization with successful stenting of the right PDA distal to the anastomotic site with reduction in stenosis from 80% to 0% and successful stenting of the distal anastomotic site of the saphenous vein graft to the right coronary artery with reduction in stenosis from 80% 0%.. Patient Condition at Discharge: Good Plan - Discharge Summary New Discharge Prescriptions: Clopidogrel [Plavix] 75 mg PO DAILY #30 tab Lisinopril [Zestril] 5 mg PO BID #60 tab Nitroglycerin Sl Tabs [Nitrostat] 0.4 mg SUBLINGUAL Q5M PRN #25 tab PRN Reason: Chest Pain Discharge Medication List Aspirin EC [Ecotrin Low Dose] 81 mg PO DAILY 10/02/16 [History] Cetirizine HCl [Zyrtec] 10 mg PO DAILY PRN 10/02/16 [History] DULoxetine HCL [Cymbalta] 60 mg PO DAILY 10/02/16 [History] Diclofenac Sodium [Voltaren] 50 mg PO DAILY 10/02/16 [History] HYDROcodone/APAP 7.5-325MG [Keene 7.5-325] 1 tab PO Q8H PRN 10/02/16 [History] Isosorbide Mononitrate ER [Imdur] 30 mg PO DAILY 10/02/16 [History] L.acidoph,Paracasei, B.lactis [Probiotic] 1 cap PO DAILY 10/02/16 [History] Metoprolol Tartrate [Lopressor] 25 mg PO BID 10/02/16 [History] Omeprazole [PriLOSEC] 20 mg PO DAILY 10/02/16 [History] Rosuvastatin Calcium [Crestor] 10 mg PO DAILY 10/02/16 [History] Sennosides-Docusate Sodium [Senokot-S] 1 - 2 tab PO TID PRN 10/02/16 [History] Ubidecarenone [Co Q-10] 100 mg PO DAILY 10/02/16 [History] lamoTRIgine [LaMICtal] 50 mg PO BID 10/02/16 [History] Clopidogrel [Plavix] 75 mg PO DAILY #30 tab 10/06/16 [Rx] Lisinopril [Zestril] 5 mg PO BID #60 tab 10/06/16 [Rx] Nitroglycerin Sl Tabs [Nitrostat] 0.4 mg SUBLINGUAL Q5M PRN #25 tab 10/06/16 [Rx ] Follow up Appointment(s)/Referral(s): Rashaad Mueller DO [Primary Care Provider] - 1 Week Nabil Hilario MD [STAFF PHYSICIAN] - 1 Week Patient Instructions/Handouts: After Heart Catheterization - Production Team Advisor, Chest Pain (DC) Discharge Disposition: HOME SELF-CARE
--- NOTE | 2016-10-06 12:23 | P.PN ---
Subjective Principal diagnosis: Chest pain This is a pleasant 66-year-old female patient who follows with Dr. Hilario in the office. She has a known history of hypertension, dyslipidemia, coronary artery disease, status post coronary artery bypass grafting in 2008, negative stress test in April 2016. She has been having complaints of chest heaviness going on for about 6 weeks and recently saw Dr. Hilario in the office and has been scheduled for cardiac catheterization on the of this month. Presented to the emergency room with increasing chest heaviness that radiated to her back, bilateral shoulders and to her jaw. Associated symptoms included diaphoresis, shortness of breath and nausea. She also complained of occasional palpitations. EKG on admission shows sinus rhythm with T-wave inversion in the precordial leads, possible old anterior [place], no changes of acute Ischemia. Patient was taken to the cardiac catheterization lab yesterday where she underwent angioplasty and stent placement of the SVG to the RCA as well as PTCA stenting. She was seen and examined this morning, denies any chest pain or difficulty in breathing. EKG was reviewed which showed normal sinus rhythm with no changes from post-PCI. Objective - Vital Signs Vital signs: Vital Signs Temp 97.5 F L 10/06/16 11:46 Pulse 68 10/06/16 11:46 Resp 16 10/06/16 11:46 BP 136/67 10/06/16 11:46 Pulse Ox 96 10/06/16 11:46 Intake & Output 10/05/16 10/06/16 10/06/16 18:59 06:59 18:59 Intake Total 1111 298 Balance 1111 298 Weight 68.5 kg Intake: IV 275 Oral 836 298 Other: Voiding Method Toilet # Voids 3 1 - Exam PHYSICAL EXAMINATION: HEENT: Head is atraumatic, normocephalic. Pupils equal, round. Neck is supple. There is no elevated jugular venous pressure. HEART EXAMINATION: Heart S1, S2 normal. No murmur or gallop heard. CHEST EXAMINATION: Lungs are clear to auscultation and precussion. No chest wall tenderness is noted on palpation or with deep breathing. ABDOMEN: Soft, nontender. Bowel sounds are heard. No organomegaly noted. Right groin soft, no evidence of any hematoma, there is mild ecchymosis. No bruit. EXTREMITIES: 2+ peripheral pulses with no evidence of peripheral edema and no calf tenderness noted. NEUROLOGIC patient is awake, alert and oriented -3. . - Labs CBC & Chem 7: 10/05/16 05:57 10/06/16 05:50 Labs: Abnormal Lab Results - Last 24 Hours (Table) 10/06/16 Range/Units 05:50 Chloride 108 H (98-107) mmol/L BUN 19 H (7-17) mg/dL Glucose 123 H (74-99) mg/dL Assessment and Plan Plan: Assessment and Plan Plan: Assessment and plan #1 chest pain suggestive of angina, status post angioplasty and stenting of the SVG to the RCA as well as the PDA. #2 multivessel CAD with history of CABG in 2008 #3 hypertension #4 dyslipidemia #5 fibromyalgia Plan Patient will be discharged home today. We'll make her a follow-up appointment to see Dr. Hilario in one week. Patient will be discharged home on aspirin 81 mg daily, Lipitor 80 mg daily, Plavix 75 mg daily, Imdur 60 mg daily, lisinopril 5 mg one tablet by mouth twice a day, metoprolol tartrate 25 mg one tablet by mouth twice a day and sublingual nitroglycerin as needed for chest pain. DNP note has been reviewed, I agree with a documented findings and plan of care. Patient was seen and examined.
--- NOTE | 2016-10-29 11:13 | CC ---
DATE OF SERVICE: INDICATION: Unstable angina. PROCEDURE NOTE: After obtaining informed consent, left heart catheterization, coronary angiogram and selective injection of the bypass grafts is performed via the right femoral artery using standard Willie catheters. Patient tolerated the procedure without any obvious immediate complications. FINDINGS: HEMODYNAMICS: Left ventricular end-diastolic pressure is 18 mm. There is no significant gradient across the aortic valve. LEFT VENTRICULOGRAM: Left ventriculogram was not performed. ANGIOGRAPHIC DATA: LEFT MAIN CORONARY ARTERY: Left main coronary artery shows mild obstructive disease, it divides into left anterior descending coronary artery and circumflex coronary artery. LAD shows a 95% stenosis in the proximal part. Circumflex coronary artery shows a 95% stenosis. Right coronary artery shows a 95% stenosis. SELECTIVE INJECTION OF THE BYPASS GRAFTS: 1. COLVIN to LAD appears atretic. 2. Venous graft to OM appears patent and free of significant disease. 3. Venous graft to diag appears patent, venous graft to RCA appears patent. There is a 90% stenosis distal to the graft in the [place] PLV branch. CONCLUSION: 1. Normal left ventricular end-diastolic pressures. 2. [place] 3-vessel coronary artery disease with patent COLVIN to left anterior descending artery, venous graft to OM, diag and right coronary artery. PLAN: I will review angiographic data with the on-call sediment remediation consultant and decide on further course of action.
== END 2016-10-06 12:42 | disposition home or self-care (01) | DRG 247 ==
LOC: EC 16:08 → 6SEL 16:36
PROVIDERS: ADMIT Family Medicine; ATTEND Family Medicine
PROC: 027135Z Dilation of Coronary Artery, Two Arteries with Two Drug-eluting Intraluminal Devices, Percutaneous Approach (ICD-10-PCS; principal; 2016-10-05 07:28)
PROC: B2131ZZ Fluoroscopy of Multiple Coronary Artery Bypass Grafts using Low Osmolar Contrast (ICD-10-PCS; 2016-10-05 07:28)
PROC: B2111ZZ Fluoroscopy of Multiple Coronary Arteries using Low Osmolar Contrast (ICD-10-PCS; 2016-10-05 07:28)
PROC: 4A023N7 Measurement of Cardiac Sampling and Pressure, Left Heart, Percutaneous Approach (ICD-10-PCS; 2016-10-05 07:28)
DX: I25.710 Atherosclerosis of autologous vein coronary artery bypass graft(s) with unstable angina pectoris (principal); E87.5 Hyperkalemia; I10 Essential (primary) hypertension; I25.110 Atherosclerotic heart disease of native coronary artery with unstable angina pectoris; E78.5 Hyperlipidemia, unspecified; F31.9 Bipolar disorder, unspecified; F41.9 Anxiety disorder, unspecified; G89.29 Other chronic pain; I25.2 Old myocardial infarction; M19.90 Unspecified osteoarthritis, unspecified site; M79.7 Fibromyalgia; Z79.899 Other long term (current) drug therapy; Z82.49 Family history of ischemic heart disease and other diseases of the circulatory system; Z79.82 Long term (current) use of aspirin; M54.9 Dorsalgia, unspecified
CPT/HCPCS: 36415; 71020; 80048; 80053; 80061; 81001; 82550; 82553; 83735; 84100; 84484; 85025; 85049; 85610; 85730; 87086; 93005; 93306; 93458; 96365; 96375; 96376; 99291

== ENCOUNTER → 2016-10-30 | Outpatient (CLI) | payer MEDICARE, OTHER ==
--- NOTE | 2016-10-30 11:11 | XR ---
EXAMINATION TYPE: XR chest 2V, Left rib series DATE OF EXAM: 10/30/2016 9:35 AM COMPARISON: 10/02/2016 HISTORY: 66-year-old female with left rib pain FINDINGS: Chest: Median sternotomy wires are present. Some embolization coils are noted within the right midlun g. Mild diffuse interstitial prominence is unchanged. No consolidation or pleural effusion. Left RIBS: No displaced left rib fracture or other discrete rib abnormality is seen. IMPRESSION: Chronic changes without acute cardiopulmonary process. No displaced left rib fracture seen.
== END | disposition home or self-care (01) ==
LOC: RADXRMAIN 09:12
PROVIDERS: ATTEND Family Medicine
DX: R07.81 Pleurodynia (principal)
CPT/HCPCS: 71020

== ENCOUNTER → 2017-01-25 | Outpatient (CLI) | payer MEDICARE, OTHER ==
--- NOTE | 2017-01-25 15:18 | XR ---
EXAMINATION TYPE: XR lumbosacral spine min 4V DATE OF EXAM: 01/25/2017 CLINICAL HISTORY: pain COMPARISON: NONE TECHNIQUE: Frontal, lateral, and oblique images of the lumbar spine are obtained. FINDINGS: Severe degenerative disc space narrowing at L2-3, L4-5 and L5-S1. Endplate sclerosis and sp ondylosis identified. Severe facet joint arthropathy. Grade 1 anterolisthesis L4 and L5 measuring 2.5 mm. Scattered ventral spondylosis. Mild curvature convex to the right. IMPRESSION: Degenerative changes as discussed.
== END ==
LOC: RADXRMAIN 14:34
PROVIDERS: ATTEND Anesthesiology
DX: M47.817 Spondylosis without myelopathy or radiculopathy, lumbosacral region (principal)
CPT/HCPCS: 72110

== ENCOUNTER → 2017-01-26 | Outpatient (CLI) | payer MEDICARE, OTHER ==
--- NOTE | 2017-01-26 14:19 | MR ---
EXAMINATION TYPE: MR lumbar spine wo con DATE OF EXAM: 01/26/2017 2:13 PM COMPARISON: NONE HISTORY: spinal stenosis Multiplanar, MultiSpin echo imaging of the lumbar spine was performed. L1-L2: Normal disc appearance without desiccation. No herniation, protrusion or disc bulging. No ca nal stenosis is present. Foramina are patent bilaterally. L2-L3: Moderate disc desiccation. Broad-based posterocentral disc bulge mildly effaces the ventral th ecal sac. Small protrusion is difficult to exclude. No evidence for central stenosis or foraminal enc roachment. L3-L4: Mild disc desiccation. Mild posterior disc bulge. No herniation protrusion or central stenosis . Foramina are patent. L4-L5: Grade 1 anterolisthesis L4 on L5 measuring 5 mm. Moderate broad-based disc bulge with a partia l encapsulating spur resulting in disc endplate complex. There is hypertrophy of the ligamentum flavu m and severe facet joint arthropathy resulting in severe central stenosis. Bilateral foraminal encroa chment left much greater than right. L5-S1: Mild disc desiccation. Mild subligamentous posterior central disc herniation mildly effaces th e ventral thecal sac. No evidence for recent stenosis or central stenosis. Mild left foraminal encroa chment. Lumbar segments are intact. No paraspinal masses are identified. Conus medullaris has a normal appe arance. IMPRESSION: 1. Multilevel degenerative disc disease. 2. Severe central stenosis at L4-5. 3. Mild posterocentral disc herniation at L5-S1.
== END | disposition home or self-care (01) ==
LOC: RADMRIMAIN 13:32
PROVIDERS: ATTEND Anesthesiology
DX: M48.06 Spinal stenosis, lumbar region (principal); M51.27 Other intervertebral disc displacement, lumbosacral region; M51.36 Other intervertebral disc degeneration, lumbar region
CPT/HCPCS: 72148